=== PATIENT | female | born 1995 | race Caucasian/White ===

== ENCOUNTER 2020-05-24 06:11 | Emergency (ER) | payer BC ==
[~2020-05-24] VITALS: Ht 172.7 cm; Wt 86.0 kg
[2020-05-24] MEDS ORDERED: PROGESTERONE XX (06:43)
[2020-05-24] MEDS ORDERED: PRENATA7 PO (06:43)
[2020-05-24 07:23] LABS: HEMATOCRIT 34.7 % (37.0-47.0); HEMOGLOBIN 10.8 g/dl (12.0-16.0); IMMATURE GRANULOCYTES 0.3 % (0.0-5.0); MEAN CELL VOLUME 75.8 fL CALC (80.0-100.0); MEAN CORPUSCULAR HGB 23.6 pG CALC (26.0-32.0); MEAN CORPUSCULAR HGB CONC 31.1 g/dL CAL (32.0-36.0); NEUT# 4.93 thou/uL (2.00-7.15); RED BLOOD COUNT 4.58 mill/uL (4.20-5.60); RED CELL DISTRI WIDTH 16.8 % (11.5-15.5)
[2020-05-24 07:42] LABS: ALKALINE PHOSPHATASE 38 u/l (38-126); ANION GAP 11 (6-22 (CALC)); BILIRUBIN, TOTAL 0.3 mg/dL (0.0-1.4); BUN 9 mg/dL (7-17); BUN/CREATININE RATIO 16 (12-20 (CALC)); CARBON DIOXIDE 21 mmol/l (22-30); CHLORIDE 104 mmol/l (95-108); CREATININE 0.6 mg/dL (0.5-1.0); GFR > 60 ML/MIN (>=60 (CALC)); GFR FOR AFR.AMER. > 60 ML/MIN (>=60 (CALC)); POTASSIUM 4.1 mmol/l (3.5-5.1); SGOT/AST 24 u/l (14-36); SODIUM 132 mmol/l (137-146); TOTAL PROTEIN 7.3 g/dL (6.3-8.2)
[2020-05-24 08:28] LABS: URINE BILIRUBIN - DIPSTICK NEGATIVE (NEGATIVE); URINE BLOOD DIPSTICK NEGATIVE (NEGATIVE); URINE COLOR YELLOW; URINE GLUCOSE - DIPSTICK NEGATIVE (NEGATIVE); URINE KETONE NEGATIVE (NEGATIVE); URINE LEUK ESTERASE NEGATIVE (NEGATIVE); URINE NITRITE - DIPSTICK NEGATIVE (Negative); URINE PH 6.5 (4.5-8.0); URINE PROTEIN - DIPSTICK NEGATIVE (NEG-TRACE); URINE SPECIFIC GRAVITY 1.025; URINE UROBILINOGEN - DIPSTICK 0.2 E.U./dL (0.2)
[2020-05-24] MEDS ORDERED: PHENERGAN25 MG/TAB PO (09:54)
[2020-05-24 09:56] VITALS: BP 99/51
== END 2020-05-24 10:07 | disposition home or self-care (01) | DRG 833 ==
LOC: ED 06:11
PROVIDERS: Emergency Medicine
DX: O21.0 Mild hyperemesis gravidarum (principal); O26.891 Other specified pregnancy related conditions, first trimester; R51.9 Headache, unspecified; Z3A.11 11 weeks gestation of pregnancy; Z20.822 Contact with and (suspected) exposure to COVID-19

== ENCOUNTER 2020-08-05 | Emergency (ER) | payer BC ==
[~2020-08-05] MED LIST: PHENERGAN25 MG/TAB PO; PRENATA7 PO; PROGESTERONE XX
[2020-08-05 14:50] LABS: URINE BILIRUBIN - DIPSTICK NEGATIVE (NEGATIVE); URINE BLOOD DIPSTICK NEGATIVE (NEGATIVE); URINE COLOR YELLOW; URINE GLUCOSE - DIPSTICK NEGATIVE (NEGATIVE); URINE KETONE NEGATIVE (NEGATIVE); URINE LEUK ESTERASE NEGATIVE (NEGATIVE); URINE NITRITE - DIPSTICK NEGATIVE (Negative); URINE PROTEIN - DIPSTICK NEGATIVE (NEG-TRACE); URINE UROBILINOGEN - DIPSTICK 0.2 E.U./dL (0.2)
[2020-08-05 15:18] LABS: HEMATOCRIT 30.7 % (37.0-47.0); HEMOGLOBIN 9.9 g/dl (12.0-16.0); IMMATURE GRANULOCYTES 0.4 % (0.0-5.0); MEAN CELL VOLUME 78.3 fL CALC (80.0-100.0); MEAN CORPUSCULAR HGB 25.3 pG CALC (26.0-32.0); MEAN CORPUSCULAR HGB CONC 32.2 g/dL CAL (32.0-36.0); NEUT# 6.44 thou/uL (2.00-7.15); RED BLOOD COUNT 3.92 mill/uL (4.20-5.60); RED CELL DISTRI WIDTH 16.6 % (11.5-15.5)
[2020-08-05 15:36] LABS: ALBUMIN 3.7 g/dL (3.2-5.0); ALKALINE PHOSPHATASE 56 u/l (38-126); AMYLASE 73 u/l (30-110); ANION GAP 8 (6-22 (CALC)); BUN 5 mg/dL (7-17); BUN/CREATININE RATIO 8 (12-20 (CALC)); CARBON DIOXIDE 24 mmol/l (22-30); CHLORIDE 103 mmol/l (95-108); CREATININE 0.6 mg/dL (0.5-1.0); GFR > 60 ML/MIN (>=60 (CALC)); GFR FOR AFR.AMER. > 60 ML/MIN (>=60 (CALC)); LIPASE 34 u/l (23-300); POTASSIUM 3.9 mmol/l (3.5-5.1); SGOT/AST 21 u/l (14-36); SODIUM 132 mmol/l (137-146); TOTAL PROTEIN 7.2 g/dL (6.3-8.2)
[2020-08-05 15:43] LABS: BILIRUBIN, TOTAL 0.5 mg/dL (0.0-1.4)
[2020-08-05] MEDS ORDERED: ONDANSETRON4 MG PO (15:54)
== END 2020-08-05 16:22 | disposition home or self-care (01) | DRG 833 ==
PROVIDERS: Emergency Medicine
DX: O21.2 Late vomiting of pregnancy (principal); O99.352 Diseases of the nervous system complicating pregnancy, second trimester; G43.909 Migraine, unspecified, not intractable, without status migrainosus; Z3A.22 22 weeks gestation of pregnancy; Z20.822 Contact with and (suspected) exposure to COVID-19

== ENCOUNTER 2021-02-28 08:59 | Emergency (ER) | payer BC ==
[~2021-02-28] VITALS: Ht 172.7 cm; Wt 85.0 kg
[~2021-02-28 08:59] MED LIST changes: +ONDANSETRON4 MG PO
[2021-02-28] MEDS ORDERED: VYVANSE60 MG PO (09:21)
[2021-02-28] MEDS ORDERED: DIAZEPAM5 MG PO (09:22)
[2021-02-28 12:40] VITALS: BP 111/71
[2021-02-28] MEDS ORDERED: IMITREX25 MG PO (12:49)
== END 2021-02-28 12:40 | disposition home or self-care (01) | DRG 605 ==
LOC: ED 08:59
PROC: 0HQ1XZZ Repair Face Skin, External Approach (ICD-10-PCS; principal; 2021-02-28)
DX: S01.81XA Laceration without foreign body of other part of head, initial encounter (principal); G43.909 Migraine, unspecified, not intractable, without status migrainosus; F41.9 Anxiety disorder, unspecified; W01.198A Fall on same level from slipping, tripping and stumbling with subsequent striking against other object, initial encounter; Y92.002 Bathroom of unspecified non-institutional (private) residence as the place of occurrence of the external cause

== ENCOUNTER 2021-05-07 20:21 | Emergency (ER) | payer BC ==
[~2021-05-07] VITALS: Ht 172.7 cm; Wt 84.0 kg
[~2021-05-07 20:21] MED LIST changes: +DIAZEPAM5 MG PO; +IMITREX25 MG PO; +VYVANSE60 MG PO
[2021-05-07 21:22] LABS: URINE BILIRUBIN - DIPSTICK NEGATIVE (NEGATIVE); URINE BLOOD DIPSTICK SMALL (NEGATIVE); URINE COLOR YELLOW; URINE GLUCOSE - DIPSTICK NEGATIVE (NEGATIVE); URINE KETONE NEGATIVE (NEGATIVE); URINE LEUK ESTERASE NEGATIVE (NEGATIVE); URINE PH 5.5 (4.5-8.0); URINE PROTEIN - DIPSTICK TRACE mg/dL (NEG-TRACE); URINE SPECIFIC GRAVITY >=1.030; URINE UROBILINOGEN - DIPSTICK 0.2 E.U./dL (0.2)
[2021-05-07 21:23] LABS: HEMATOCRIT 37.4 % (37.0-47.0); HEMOGLOBIN 11.3 g/dl (12.0-16.0); IMMATURE GRANULOCYTES 0.1 % (0.0-5.0); MEAN CELL VOLUME 73.5 fL CALC (80.0-100.0); MEAN CORPUSCULAR HGB 22.2 pG CALC (26.0-32.0); MEAN CORPUSCULAR HGB CONC 30.2 g/dL CAL (32.0-36.0); NEUT# 10.84 thou/uL (2.00-7.15); RED BLOOD COUNT 5.09 mill/uL (4.20-5.60); RED CELL DISTRI WIDTH 17.6 % (11.5-15.5)
[2021-05-07 21:24] LABS: URINE NITRITE - DIPSTICK NEGATIVE (Negative)
[2021-05-07 21:32] LABS: URINE RBC 0-2 RBC/hpf (0-5); URINE SQUAMOUS EPITHELIAL CELL MODERATE EPI/hpf (0-FEW)
[2021-05-07 21:38] LABS: ALBUMIN 4.5 g/dL (3.2-5.0); ALKALINE PHOSPHATASE 51 u/l (38-126); ANION GAP 11 (6-22 (CALC)); BILIRUBIN, TOTAL 0.4 mg/dL (0.0-1.4); BUN 13 mg/dL (7-17); BUN/CREATININE RATIO 16 (12-20 (CALC)); CARBON DIOXIDE 28 mmol/l (22-30); CHLORIDE 105 mmol/l (95-108); CREATININE 0.8 mg/dL (0.5-1.0); GFR > 60 ML/MIN (>=60 (CALC)); GFR FOR AFR.AMER. > 60 ML/MIN (>=60 (CALC)); POTASSIUM 4.1 mmol/l (3.5-5.1); SGOT/AST 35 u/l (14-36); SODIUM 140 mmol/l (137-146)
[2021-05-07] MEDS ORDERED: FIORICET PO (23:32)
[2021-05-07 23:48] VITALS: BP 142/77
== END 2021-05-08 07:15 | disposition home or self-care (01) | DRG 914 ==
LOC: ED 20:21
PROVIDERS: Emergency Medicine
DX: S09.90XA Unspecified injury of head, initial encounter (principal); S20.01XA Contusion of right breast, initial encounter; G43.909 Migraine, unspecified, not intractable, without status migrainosus; F41.9 Anxiety disorder, unspecified; V80.010A Animal-rider injured by fall from or being thrown from horse in noncollision accident, initial encounter; W55.12XA Struck by horse, initial encounter; Y93.52 Activity, horseback riding; Y92.009 Unspecified place in unspecified non-institutional (private) residence as the place of occurrence of the external cause; Z98.82 Breast implant status; Z98.84 Bariatric surgery status